=== PATIENT | female | born 1960 | race Two or more races ===

== ENCOUNTER 2021-07-03 09:47 | Emergency (ER) | payer OTHER ==
[~2021-07-03] VITALS: Ht 162.6 cm; Wt 100.0 kg
[2021-07-03] MEDS ORDERED: METF-1211 PO (10:22)
[2021-07-03] MEDS ORDERED: SITA100 PO (10:22)
[2021-07-03] MEDS ORDERED: GABA-1181 PO (10:22)
[2021-07-03] MEDS ORDERED: AMLO-257 PO (10:22)
[2021-07-03] MEDS ORDERED: INSU100I26 SQ ×2 (10:22→10:39)
[2021-07-03] MEDS ORDERED: ATOR40TA28 PO (10:22)
[2021-07-03] MEDS ORDERED: LISI-894 PO (10:22)
[2021-07-03 10:41] VITALS: BP 135/81
== END 2021-07-03 10:50 | disposition home or self-care (01) ==
LOC: EMS 09:47
DX: E11.9 Type 2 diabetes mellitus without complications (principal); E78.00 Pure hypercholesterolemia, unspecified; I10 Essential (primary) hypertension; Z76.0 Encounter for issue of repeat prescription; Z79.899 Other long term (current) drug therapy; Z88.8 Allergy status to other drugs, medicaments and biological substances; Z79.4 Long term (current) use of insulin
CPT/HCPCS: 99281; Z7502

== ENCOUNTER 2022-07-27 16:46 | Emergency (ER) | payer OTHER ==
[~2022-07-27] VITALS: Ht 160 cm; Wt 86.4 kg
[~2022-07-27 16:46] MED LIST: AMLO-257 PO; ATOR40TA28 PO; GABA-1181 PO; INSU100I26 SQ; LISI-894 PO; METF-1211 PO; SITA100 PO
[2022-07-27 20:03] LABS: APPEARANCE,URINE CLEAR (CLEAR); BILIRUBIN,URINE NEGATIVE (NEGATIVE); GLUCOSE, URINE (UA) >=1000 mg/dL (NEGATIVE); KETONES,URINE NEGATIVE (NEGATIVE); LEUKOCYTE ESTERASE ,URINE LARGE (NEGATIVE); NITRATE,URINE NEGATIVE (NEGATIVE); OCCULT BLOOD,URINE NEGATIVE (NEGATIVE); PROTEIN,URINE NEGATIVE (NEGATIVE); UROBILINOGEN,URINE <=1.0 mg/dL (<=1.0)
[2022-07-27 20:11] LABS: BACTERIA,URINE Moderate /HPF (None Seen); RBC,URINE 0-2 /HPF (0-2); SQUAMOUS EPITHELIAL CELL,UR Few /LPF (None Seen)
[2022-07-27] MEDS ORDERED: CEPH-558 PO (20:19)
[2022-07-27] MEDS ORDERED: CEPHALEXIN MONOHYDRATE 500 MG CAPSULE PO ONE (20:30)
[2022-07-27 21:04] VITALS: BP 140/78
== END 2022-07-27 21:04 | disposition home or self-care (01) ==
LOC: EMS 17:01
DX: N39.0 Urinary tract infection, site not specified (principal); E11.9 Type 2 diabetes mellitus without complications; E78.00 Pure hypercholesterolemia, unspecified; I10 Essential (primary) hypertension; Z90.49 Acquired absence of other specified parts of digestive tract; Z98.890 Other specified postprocedural states
CPT/HCPCS: 81001; 82962; 87086; 87186; 99283